=== PATIENT | female | born 1935 | race Caucasian/White ===

== ENCOUNTER 2017-05-10 06:58 | Inpatient (IN) ==
[2017-05-07 15:24] LABS: Basophils # (Auto) 0 K/mcL (0.0-0.3); Basophils % (Auto) 0.6 % (0.0-2.0); Eosinophils # (Auto) 0.1 K/mcL (0.0-0.7); Eosinophils % (Auto) 1.9 % (0.0-7.0); Lymphocytes # (Auto) 2.4 K/mcL (1.5-4.8); Lymphocytes % (Auto) 36.8 % (15.5-49.0); Mean Cell Volume 93.5 fL (80.0-100.0); Mean Corpuscular HGB Conc 34.2 g/dL (31.0-36.0); Mean Corpuscular Hemoglobin 31.9 pg (26.0-34.0); Monocytes # (Auto) 0.4 K/mcL (0.1-0.9); Monocytes % (Auto) 6.7 % (1.0-12.0); Platelet Count 271 K/mcL (140-440); RBC 3.82 M/mcL (4.00-5.20); Red Cell Distribution Width 12.9 % (11.5-14.5)
[2017-05-07 15:31] LABS: Blood Urea Nitrogen 20 mg/dl (8-23)
[2017-05-07 16:25] LABS: Appearance,Urine CLEAR; Bilirubin,Urine NEG (NEG); Color,Urine YELLOW; Glucose,Urine (UA) NEGATIVE (NEG); Leukocyte Esterase,Urine NEG /uL (NEG); Nitrate,Urine NEG (NEG); Protein,Urine NEG (NEG); Specific Gravity,Urine 1.015 (1.000-1.035); Urine Blood NEG mg/dL (<0.03); Urobilinogen,Urine NEG (NEG)
[~2017-05-10 06:58] MED LIST: IPRATROPIUM/ALBUTEROL 3 ML AMPUL.NEB NEB PRN; SCOPOLAMINE 1 PATCH PATCH TOPICAL PRN; ceFAZolin 1 GM VIAL IV SCH
[2017-05-10] MEDS ORDERED: LIDOCAINE HCL/PF 100 MG/5 ML SYRINGE IV ONE (08:45)
[2017-05-10] MEDS ORDERED: TRANEXAMIC ACID 1,000 MG/10 ML VIAL IV ONE ×2 (08:45→10:38)
[2017-05-10] MEDS ORDERED: ePHEDrine 50 MG/ML AMPUL IV ONE (08:45)
[2017-05-10] MEDS ORDERED: ONDANSETRON 4 MG/2 ML VIAL IV ONE (08:45)
[2017-05-10] MEDS ORDERED: BUPIVACAINE PF 0.5% 30 ML VIAL IJ ONE (08:45)
[2017-05-10] MEDS ORDERED: MIDAZOLAM 5 MG/5 ML VIAL IV ONE (08:45)
[2017-05-10] MEDS ORDERED: DEXAMETHASONE 10 MG/ML VIAL IV ONE (08:45)
[2017-05-10] MEDS ORDERED: PROPOFOL 200 MG/20 ML VIAL IV ONE (08:45)
[2017-05-10] MEDS ORDERED: GLYCOPYRROLATE 0.2 MG/ML VIAL IV ONE (08:45)
[2017-05-10] MEDS ORDERED: PHENYLEPHRINE 10 MG/ML VIAL IV ONE (08:45)
[2017-05-10] MEDS ORDERED: GENTAMICIN SULFATE 800 MG/20 ML VIAL IR ONE (09:32)
[2017-05-10] MEDS ORDERED: IPRATROPIUM/ALBUTEROL 3 ML AMPUL.NEB NEB PRN (10:03)
[2017-05-10] MEDS ORDERED: PROMETHAZINE 25 MG/ML VIAL IM PRN (10:03)
[2017-05-10] MEDS ORDERED: METHOCARBAMOL 1,000 MG/10 ML VIAL IV PRN (10:03)
[2017-05-10] MEDS ORDERED: NALOXONE HCL 0.4 MG/ML VIAL IV PRN (10:03)
[2017-05-10] MEDS ORDERED: MEPERIDINE 25 MG/ML SYRINGE IV PRN (10:03)
[2017-05-10] MEDS ORDERED: ONDANSETRON 4 MG/2 ML VIAL IV PRN ×2 (10:03→10:38)
[2017-05-10] MEDS ORDERED: LACTATED RINGERS 250 ML IV PRN (10:03)
[2017-05-10] MEDS ORDERED: diphenhydrAMINE 50 MG/ML VIAL IV PRN (10:03)
[2017-05-10] MEDS ORDERED: BENZOCAINE/MENTHOL 1 LOZENGE PO PRN ×2 (10:03→10:38)
[2017-05-10] MEDS ORDERED: ePHEDrine 50 MG/ML AMPUL IV PRN (10:03)
[2017-05-10] MEDS ORDERED: PROMETHAZINE 25 MG/ML VIAL IV PRN (10:03)
[2017-05-10] MEDS ORDERED: MEPERIDINE 50 MG/ML SYRINGE IM PRN (10:03)
[2017-05-10] MEDS ORDERED: fentaNYL 100 MCG/2 ML VIAL IV PRN (10:03)
[2017-05-10] MEDS ORDERED: ACETAMINOPHEN 1,000 MG/100 ML BOTTLE IV ONE (10:03)
[2017-05-10] MEDS ORDERED: FLUMAZENIL 0.1 MG/ML ML IV PRN (10:03)
[2017-05-10] MEDS ORDERED: BUPIVACAINE 0.25% 50 ML VIAL IJ ONE (10:14)
[2017-05-10] MEDS ORDERED: LACTATED RINGERS 1,000 ML IV SCH (10:15)
--- NOTE | 2017-05-10 10:34 | Brief Operative Note ---
Date of procedure: 05/10/17 Pre-op diagnosis: DJD left knee Post-op diagnosis: same Procedure: L TKR Grafts/Implants: Yes (TC3 depuy) Anesthesia: GETA Complications: none Surgeon: Ehsan Calhoun Supervisor Car Installations: Tj Lu Estimated blood loss (cc): 250 Tourniquet Time (Minutes): 40 Specimens Removed/Pathology: none sent Condition: stable Disposition: PACU
[2017-05-10] MEDS ORDERED: FLEETS ADULT ENEMA PR PRN (10:38)
[2017-05-10] MEDS ORDERED: MAGNESIUM HYDROXIDE 30 ML ORAL.SUSP PO PRN (10:38)
[2017-05-10] MEDS ORDERED: POLYETHYLENE GLYCOL 3350 17 GM PACKET PO PRN (10:38)
[2017-05-10] MEDS ORDERED: BISACODYL 10 MG SUPP.RECT PR PRN (10:38)
[2017-05-10] MEDS ORDERED: DOCUSATE SODIUM 100 MG CAPSULE PO PRN (10:44)
[2017-05-10] MEDS ORDERED: OMEPRAZOLE 20 MG CAPSULE PO PRN (10:44)
[2017-05-10] MEDS: LACTATED RINGERS 1,000 ML IV SCH ×3 (11:22→23:36)
--- NOTE | 2017-05-10 11:45 | XRay Report ---
CLINICAL INFORMATION: Post-op total knee COMPARISON: None. FINDINGS: Total knee prostheses is anatomically aligned. No osseous normality. Periarticular gas and soft tissue swelling seen. IMPRESSION: Negative Interpreted and Authenticated by: Donnell Cummings 05/10/17
--- NOTE | 2017-05-10 13:08 | Operative Note ---
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 OPERATION: Left total knee replacement (TC3 DePuy system). SURGEON: Ehsan Calhoun M.D. SCREEN DOOR MAKER: Tj Lu PA-C. ANESTHESIA: General. TOURNIQUET TIME: About 45 minutes. ESTIMATED BLOOD LOSS: 250 mL. SUMMARY OF PROCEDURE: General anesthesia was attained. The left leg was prepped and draped. A midline incision was made from the quadriceps to the tibial tubercle. The incision was taken down sharply to the quadriceps and medial retinaculum. The kneecap was mobilized laterally. The anterior menisci were resected. The kneecap was then everted. At this point, we did put the tourniquet up due to oozing. The intramedullary canal of the femur was opened with a drill and then the intramedullary tena placed. The distal femoral cutting guide was next applied over the tena. The distal cut was made at a 9 mm depth. Attention was then turned to the tibia. The knee was flexed to 140 degrees. The intramedullary canal of the tibia was opened with a drill and then it was reamed. The proximal guide for the tibial cut was placed and position was checked. The proximal cut was made. We then used a spacer to check the flexion and extension gap. I released some the iliotibial band which felt tight while checking the flexion and extension gap, and otherwise we got the gap balanced to a 10 mm insert. The femur sized to a 4. The anterior, posterior and bevel cuts were made. The tibia was prepared. It sized to a 3. The rotation was adjusted to match the patient's. The intramedullary canal was drilled and then broached. The patella was everted. It measured 25 mm. A measured resection was used taking 10 mm off the patella. It sized to a 38. The bone surfaces were copiously irrigated. They were then dried. The cement was placed onto the prosthesis and the components placed. Excess cement and spurs were removed. The cement was cured with the knee in full extension. The no-touch test was done after removing all excess cement and showed a lateral release was not needed. The quadriceps and medial retinaculum were closed with buried simple sutures of #2 FiberWire. The distal aspect was closed with a running locking 0 Maxon. The subcutaneous tissue was closed with 2-0 Vicryl. The skin was closed with rose. Throughout the procedure, Marcaine was injected to the capsule posteriorly and to the quadriceps muscle and tendon anteriorly for postoperative analgesia. A sterile compressive dressing was applied followed by an Chance bandage. The sponge and needle count was correct. The patient tolerated the procedure well and was taken to the recovery room in stable condition. TJF:olvin Job ID: [id number] Doc ID: [id number] Ehsan Calhoun MD
[2017-05-10] MEDS: 0.9 % SODIUM CHLORIDE 10 ML SYRINGE IV SCH ×2 (13:58→21:03)
[2017-05-10] MEDS: HYDROCODONE/APAP 7.5/325MG TABLET PO PRN ×3 (14:03→23:03)
[2017-05-10] MEDS: HYDROmorphone 2 MG/ML SYRINGE IV PRN ×4 (14:16→21:18)
[2017-05-10] MEDS: ceFAZolin 1 GM VIAL IV SCH (17:30)
[2017-05-10] MEDS: SENNOSIDES 1 TABLET PO SCH (20:48)
[2017-05-10] MEDS: morphine 15 MG TAB.SR.12H PO SCH (20:48)
[2017-05-10] MEDS: METHOCARBAMOL 750 MG TABLET PO PRN (20:48)
[2017-05-10] MEDS: GABAPENTIN 400 MG CAPSULE PO SCH (20:48)
[2017-05-10] MEDS: ASPIRIN 325 MG ENTERIC COATED TABLET PO SCH (20:49)
[2017-05-10] MEDS: DOCUSATE SODIUM 100 MG CAPSULE PO SCH (20:49)
[2017-05-10] MEDS ORDERED: ALBUTEROL SULFATE 1 PUFF INHALER IH PRN (21:00)
[2017-05-10] MEDS: traZODone HCL 50 MG TABLET PO PRN (21:02)
[2017-05-11] MEDS: HYDROmorphone 2 MG/ML SYRINGE IV PRN ×7 (00:11→17:16)
[2017-05-11] MEDS: ceFAZolin 1 GM VIAL IV SCH (00:12)
[2017-05-11] MEDS: HYDROCODONE/APAP 7.5/325MG TABLET PO PRN ×3 (03:12→13:58)
[2017-05-11] MEDS: METHOCARBAMOL 750 MG TABLET PO PRN ×3 (03:14→17:16)
[2017-05-11] MEDS: 0.9 % SODIUM CHLORIDE 10 ML SYRINGE IV SCH ×3 (06:16→21:23)
[2017-05-11] MEDS: LACTATED RINGERS 1,000 ML IV SCH ×2 (06:58→17:26)
[2017-05-11] MEDS ORDERED: LORazepam 1 MG TABLET PO PRN (07:46)
--- NOTE | 2017-05-11 07:49 | Orthopedic Progress Note ---
Subjective Patient information: Note initiated : 05/11/17 at 7:46 am Service Date, if different from initiated Date: [] Patient: Yoselin Adams 81 y/o F admitted on 05/10/17 for Left Total Knee Arthroplasty. Chief Complaint: [] Principal diagnosis: l TKA Objective Vital signs: Vital Signs Temp Pulse Resp BP BP Pulse Ox 05/11/17 07:11 98.4 F 16 137/67 95 05/11/17 04:00 97.5 F 52 L 16 134/54 97 05/10/17 22:55 97.2 F 61 18 112/51 93 05/10/17 20:00 98.0 F 70 22 106/59 95 05/10/17 16:27 52 L 05/10/17 16:25 52 L 16 155/66 98 05/10/17 14:37 75 05/10/17 14:30 160/68 05/10/17 13:45 48 L 16 165/68 100 05/10/17 13:12 48 L 16 150/68 100 05/10/17 12:42 48 L 16 147/72 100 05/10/17 12:28 49 L 16 143/61 100 05/10/17 12:12 52 L 16 145/80 100 05/10/17 11:57 98.1 F 56 L 16 88 L 05/10/17 11:41 98.2 F 75 12 118/57 99 05/10/17 11:28 97.0 F 62 12 109/55 95 05/10/17 11:10 97.0 F 54 L 9 L 131/55 100 05/10/17 10:55 97.0 F 53 L 10 L 117/49 100 Intake and Output 05/10/17 05/11/17 05/11/17 21:59 05:59 13:59 Intake Total 720 / 720 Output Total 600 / 600 200 / 200 Balance 720 / 720 -600 / -600 -200 / -200 Intake: Oral 720 / 720 Output: Void Amount 600 / 600 200 / 200 Other: Meal Nourishment/Supplement Percent of Meal Consumed 100% Weight 149 lb Intake & Output: Intake & Output 05/10/17 05/11/17 05/11/17 21:59 05:59 13:59 Intake Total 720 / 720 Output Total 600 / 600 200 / 200 Balance 720 / 720 -600 / -600 -200 / -200 Weight 149 lb Intake: Oral 720 / 720 Output: Void Amount 600 / 600 200 / 200 Other: Meal Nourishment/Supplement Percent of Meal Consumed 100% Incision: Yes clean and dry Dressing: Yes clean, Yes dry, Yes intact Weight bearing status: as tolerated Neurological exam IM: Yes alert, Yes motor sensory deficit Extremities exam IM: Yes neurovascular intact - Diagnostic Results Knee x-ray: image reviewed (well aligned TKR) - Labs CBC & BMP: 05/11/17 05:56 05/07/17 13:59 Labs: Orthopedic Labs 05/07/17 13:59 PT 13.4 INR 1.0 05/11/17 05/07/17 05:56 13:59 Hgb 8.6 L 12.2 Hct 25.3 L 35.8 L Assessment and Plan (1) Total knee replacement status mild anemia. pain controll problems recheck hct tomorrow switch to Morphine short acting as she has been on Morphine SR preop Status: Acute Priority: Medium Qualifiers: Laterality: left Qualified Code(s): Z96.652 - Presence of left artificial knee joint
[2017-05-11] MEDS: FERROUS GLUCONATE 324 MG TABLET PO SCH (08:20)
[2017-05-11] MEDS: LISINOPRIL 10 MG TABLET PO SCH (08:20)
[2017-05-11] MEDS: DOCUSATE SODIUM 100 MG CAPSULE PO SCH ×2 (08:20→21:23)
[2017-05-11] MEDS: VITAMIN D3 1,000 UNIT TABLET PO SCH (08:20)
[2017-05-11] MEDS: ESCITALOPRAM 10 MG TABLET PO SCH (08:20)
[2017-05-11] MEDS: GABAPENTIN 400 MG CAPSULE PO SCH ×2 (08:20→21:23)
[2017-05-11] MEDS: predniSONE 5 MG TABLET PO SCH (08:20)
[2017-05-11] MEDS: morphine 15 MG TAB.SR.12H PO SCH ×2 (08:20→21:23)
[2017-05-11] MEDS: ASPIRIN 325 MG ENTERIC COATED TABLET PO SCH ×2 (08:21→21:23)
[2017-05-11] MEDS: morphine 15 MG TABLET PO PRN ×2 (09:56→14:29)
[2017-05-11] MEDS: SENNOSIDES 1 TABLET PO SCH (21:23)
[2017-05-12] MEDS: METHOCARBAMOL 750 MG TABLET PO PRN ×3 (00:01→16:19)
[2017-05-12] MEDS: morphine 15 MG TABLET PO PRN ×2 (02:50→13:08)
[2017-05-12] MEDS: LACTATED RINGERS 1,000 ML IV SCH ×3 (05:00→23:02)
[2017-05-12] MEDS: 0.9 % SODIUM CHLORIDE 10 ML SYRINGE IV SCH ×3 (06:16→21:41)
[2017-05-12] MEDS: FERROUS GLUCONATE 324 MG TABLET PO SCH (08:27)
[2017-05-12] MEDS: GABAPENTIN 400 MG CAPSULE PO SCH ×2 (08:27→21:30)
[2017-05-12] MEDS: predniSONE 5 MG TABLET PO SCH (08:27)
[2017-05-12] MEDS: DOCUSATE SODIUM 100 MG CAPSULE PO SCH ×2 (08:27→21:30)
[2017-05-12] MEDS: VITAMIN D3 1,000 UNIT TABLET PO SCH (08:27)
[2017-05-12] MEDS: morphine 15 MG TAB.SR.12H PO SCH ×2 (08:28→21:30)
[2017-05-12] MEDS: LISINOPRIL 10 MG TABLET PO SCH (08:28)
[2017-05-12] MEDS: ESCITALOPRAM 10 MG TABLET PO SCH (08:28)
[2017-05-12] MEDS: ASPIRIN 325 MG ENTERIC COATED TABLET PO SCH ×2 (08:28→21:30)
--- NOTE | 2017-05-12 09:37 | Orthopedic Progress Note ---
Subjective Patient information: Note initiated : 05/12/17 at 9:35 am Service Date, if different from initiated Date: [] Patient: Yoselin Adams 81 y/o F admitted on 05/10/17 for Left Total Knee Arthroplasty. Chief Complaint: [] Principal diagnosis: l TKA Interval history: POD 2, having less pain Objective Vital signs: Vital Signs Temp Pulse Resp BP BP Pulse Ox 05/12/17 06:47 98.8 F 20 155/69 95 05/12/17 04:00 69 16 160/67 97 05/12/17 00:05 96 05/12/17 00:00 98.9 F 66 18 157/76 89 L 05/11/17 20:00 98.5 F 74 18 171/72 91 05/11/17 16:00 98.6 F 18 150/59 95 05/11/17 11:54 98.2 F 20 128/62 94 Intake and Output 05/11/17 05/12/17 05/12/17 21:59 05:59 13:59 Intake Total 200 / 200 Output Total 750 / 750 375 / 375 200 / 200 Balance -750 / -750 -175 / -175 -200 / -200 Intake: Oral 200 / 200 Output: Void Amount 750 / 750 375 / 375 200 / 200 Other: # Voids 1 Weight 149 lb Intake & Output: Intake & Output 05/11/17 05/12/17 05/12/17 21:59 05:59 13:59 Intake Total 200 / 200 Output Total 750 / 750 375 / 375 200 / 200 Balance -750 / -750 -175 / -175 -200 / -200 Weight 149 lb Intake: Oral 200 / 200 Output: Void Amount 750 / 750 375 / 375 200 / 200 Other: # Voids 1 Dressing: Yes clean, Yes dry Weight bearing status: as tolerated Extremities exam IM: Yes neurovascular intact - Labs CBC & BMP: 05/12/17 04:48 05/07/17 13:59 Labs: Orthopedic Labs 05/07/17 13:59 PT 13.4 INR 1.0 05/12/17 05/11/17 05/07/17 04:48 05:56 13:59 Hgb 8.8 L 8.6 L 12.2 Hct 25.7 L 25.3 L 35.8 L Assessment and Plan (1) Total knee replacement status Less pain. have d/meme norco and filaudid, weaning down to oral Morphine continue physical thpy Status: Acute Priority: Medium Qualifiers: Laterality: left Qualified Code(s): Z96.652 - Presence of left artificial knee joint
[2017-05-12] MEDS: ACETAMINOPHEN 1,000 MG/100 ML BOTTLE IV PRN ×2 (11:17→19:15)
[2017-05-12] MEDS: SENNOSIDES 1 TABLET PO SCH (21:30)
[2017-05-12] MEDS: traZODone HCL 50 MG TABLET PO PRN (22:31)
[2017-05-13] MEDS: morphine 15 MG TABLET PO PRN ×2 (05:41→13:03)
[2017-05-13] MEDS: 0.9 % SODIUM CHLORIDE 10 ML SYRINGE IV SCH ×2 (05:41→09:41)
[2017-05-13] MEDS: LACTATED RINGERS 1,000 ML IV SCH (08:30)
[2017-05-13] MEDS: predniSONE 5 MG TABLET PO SCH (08:30)
[2017-05-13] MEDS: DOCUSATE SODIUM 100 MG CAPSULE PO SCH (08:30)
[2017-05-13] MEDS: FERROUS GLUCONATE 324 MG TABLET PO SCH (08:30)
[2017-05-13] MEDS: ESCITALOPRAM 10 MG TABLET PO SCH (08:30)
[2017-05-13] MEDS: GABAPENTIN 400 MG CAPSULE PO SCH (08:30)
[2017-05-13] MEDS: morphine 15 MG TAB.SR.12H PO SCH (08:30)
[2017-05-13] MEDS: ASPIRIN 325 MG ENTERIC COATED TABLET PO SCH (08:30)
[2017-05-13] MEDS: VITAMIN D3 1,000 UNIT TABLET PO SCH (08:30)
[2017-05-13] MEDS: LISINOPRIL 10 MG TABLET PO SCH (08:30)
[2017-05-13] MEDS: ACETAMINOPHEN 1,000 MG/100 ML BOTTLE IV PRN (09:40)
--- NOTE | 2017-05-13 10:00 | Orthopedic Progress Note ---
Subjective Patient information: Note initiated : 05/13/17 at 9:57 am Service Date, if different from initiated Date: [] Patient: Yoselin Adams 81 y/o F admitted on 05/10/17 for Left Total Knee Arthroplasty. Chief Complaint: [] Principal diagnosis: l TKA Interval history: walked 75 feet yesterday. better pain control Objective Vital signs: Vital Signs Temp Pulse Resp BP Pulse Ox 05/13/17 06:44 98.2 F 16 134/73 94 05/13/17 04:00 98.4 F 79 16 145/79 97 05/13/17 00:00 97.7 F 79 16 148/77 94 05/12/17 20:00 98.0 F 66 16 141/62 93 05/12/17 16:00 97.5 F 66 16 143/71 95 05/12/17 12:01 97.5 F 71 18 149/73 96 Intake and Output 05/12/17 05/13/17 05/13/17 21:59 05:59 13:59 Intake Total 300 / 300 200 / 200 600 / 600 Output Total 250 / 250 450 / 450 425 / 425 Balance 50 / 50 -250 / -250 175 / 175 Intake: IV 100 / 100 Oral 300 / 300 100 / 100 600 / 600 Output: Void Amount 250 / 250 450 / 450 425 / 425 Other: Meal Lunch Breakfast Percent of Meal Consumed see note 50% # Voids 1 1 # Bowel Movements 1 Weight 147 lb Intake & Output: Intake & Output 05/12/17 05/13/17 05/13/17 21:59 05:59 13:59 Intake Total 300 / 300 200 / 200 600 / 600 Output Total 250 / 250 450 / 450 425 / 425 Balance 50 / 50 -250 / -250 175 / 175 Weight 147 lb Intake: IV 100 / 100 Oral 300 / 300 100 / 100 600 / 600 Output: Void Amount 250 / 250 450 / 450 425 / 425 Other: Meal Lunch Breakfast Percent of Meal Consumed see note 50% # Voids 1 1 # Bowel Movements 1 Dressing: Yes clean, Yes dry, Yes intact Weight bearing status: as tolerated Extremities exam IM: Yes neurovascular intact - Labs CBC & BMP: 05/13/17 04:34 05/07/17 13:59 Labs: Orthopedic Labs 05/07/17 13:59 PT 13.4 INR 1.0 05/13/17 05/12/1717 04:34 04:48 05:56 Hgb 8.3 L 8.8 L 8.6 L Hct 23.9 L 25.7 L 25.3 L 05/07/17 13:59 Hgb 12.2 Hct 35.8 L Assessment and Plan (1) Total knee replacement status Doing better on Morphine and anxiolytics. Continue PT;social service consult. Status: Acute Priority: Medium Qualifiers: Laterality: left Qualified Code(s): Z96.652 - Presence of left artificial knee joint
--- NOTE | 2017-05-13 10:49 | Discharge Summary ---
DATE OF ADMISSION: 05/10/2017 DATE OF DISCHARGE: Yoselin was admitted on 05/10 for a left total knee replacement, is transferred to swing bed status on the . Discharge diagnoses are left total knee replacement and anemia. The patient was admitted and underwent an uncomplicated total knee replacement on the . She was slow with rehabilitation. She was requiring morphine for pain control but is progressing in her amount of walking per day. She is transferred to swing bed on morphine for pain control. She had a stable hematocrit between 24 and 25 after surgery with no symptoms. She will continue her rehabilitation on a swing bed at [facility]. TJF:[facility] Job ID: [id number] Doc ID: [id number] Ehsan Calhoun MD
== END 2017-05-13 10:56 | disposition other institution (70) | DRG 470 ==
LOC: MEDSUR 06:58
PROVIDERS: ADMIT Orthopaedic Surgery Foot and Ankle Surgery; ATTEND Orthopaedic Surgery Foot and Ankle Surgery

== ENCOUNTER 2017-05-13 10:15 | Inpatient (IN) ==
[2017-05-13] MEDS ORDERED: MAGNESIUM HYDROXIDE 30 ML ORAL.SUSP PO PRN (11:04)
[2017-05-13] MEDS ORDERED: BISACODYL 10 MG SUPP.RECT PR PRN (11:04)
[2017-05-13] MEDS ORDERED: BENZOCAINE/MENTHOL 1 LOZENGE PO PRN (11:04)
[2017-05-13] MEDS ORDERED: POLYETHYLENE GLYCOL 3350 17 GM PACKET PO PRN (11:04)
[2017-05-13] MEDS ORDERED: ONDANSETRON 4 MG/2 ML VIAL IV PRN (11:04)
[2017-05-13] MEDS ORDERED: FLEETS ADULT ENEMA PR PRN (11:04)
[2017-05-13] MEDS ORDERED: ACETAMINOPHEN 650 MG/65 ML BOTTLE IV PRN (11:25)
[2017-05-13] MEDS: METHOCARBAMOL 750 MG TABLET PO PRN (15:45)
[2017-05-13] MEDS: 0.9 % SODIUM CHLORIDE 10 ML SYRINGE IV SCH ×2 (15:47→20:29)
[2017-05-13] MEDS: DOCUSATE SODIUM 100 MG CAPSULE PO SCH (20:27)
[2017-05-13] MEDS: morphine 15 MG TAB.SR.12H PO SCH (20:27)
[2017-05-13] MEDS: SENNOSIDES 1 TABLET PO SCH (20:27)
[2017-05-13] MEDS: ASPIRIN 325 MG ENTERIC COATED TABLET PO SCH (20:27)
[2017-05-13] MEDS ORDERED: OMEPRAZOLE 20 MG CAPSULE PO PRN (20:39)
[2017-05-13] MEDS: ALBUTEROL SULFATE 1 PUFF INHALER INH SCH (21:18)
[2017-05-13] MEDS: GABAPENTIN 400 MG CAPSULE PO SCH (21:18)
[2017-05-13] MEDS: morphine 15 MG TABLET PO PRN (22:37)
[2017-05-13] MEDS: traZODone HCL 150 MG TABLET PO PRN (22:37)
[2017-05-14] MEDS: METHOCARBAMOL 750 MG TABLET PO PRN ×2 (00:04→22:19)
[2017-05-14] MEDS: LORazepam 1 MG TABLET PO PRN ×2 (00:06→22:19)
[2017-05-14] MEDS: 0.9 % SODIUM CHLORIDE 10 ML SYRINGE IV SCH ×2 (06:32→13:13)
[2017-05-14] MEDS: FERROUS GLUCONATE 324 MG TABLET PO SCH (08:52)
[2017-05-14] MEDS: LISINOPRIL 10 MG TABLET PO SCH (08:52)
[2017-05-14] MEDS: predniSONE 1 MG TABLET PO SCH (08:52)
[2017-05-14] MEDS: GABAPENTIN 400 MG CAPSULE PO SCH ×2 (08:52→21:11)
[2017-05-14] MEDS: DOCUSATE SODIUM 100 MG CAPSULE PO SCH ×2 (08:52→21:12)
[2017-05-14] MEDS: ASPIRIN 325 MG ENTERIC COATED TABLET PO SCH ×2 (08:52→21:12)
[2017-05-14] MEDS: VITAMIN D3 1,000 UNIT TABLET PO SCH (08:52)
[2017-05-14] MEDS: ESCITALOPRAM 10 MG TABLET PO SCH (08:52)
[2017-05-14] MEDS: ASCORBIC ACID 500 MG TABLET PO SCH (08:52)
[2017-05-14] MEDS: morphine 15 MG TAB.SR.12H PO SCH ×2 (08:52→21:12)
[2017-05-14] MEDS: ALBUTEROL SULFATE 1 PUFF INHALER INH SCH ×2 (08:53→21:13)
[2017-05-14] MEDS ORDERED: NON FORMULARY MEDICATION 1 DOSE MISCELL PO SCH (09:00)
[2017-05-14] MEDS: morphine 15 MG TABLET PO PRN ×3 (13:12→23:57)
[2017-05-14] MEDS: SENNOSIDES 1 TABLET PO SCH (21:12)
[2017-05-14] MEDS: traZODone HCL 150 MG TABLET PO PRN (22:19)
--- NOTE | 2017-05-15 08:25 | Orthopedic Progress Note ---
Subjective Patient information: Note initiated : 05/15/17 at 8:22 am Service Date, if different from initiated Date: [] Patient: Yoselin Adams 81 y/o F admitted on 05/13/17 for Left Total Knee. Chief Complaint: [] Principal diagnosis: Pod5 Interval history: improved walkimg, less pain Objective Vital signs: Vital Signs Temp Pulse Resp BP Pulse Ox 05/15/17 07:37 98.3 F 16 114/69 90 05/14/17 20:00 98.0 F 76 16 119/70 96 Intake and Output 05/14/17 05/15/17 05/15/17 21:59 05:59 13:59 Intake Total 800 / 800 100 / 100 Output Total 1000 / 1000 550 / 550 Balance -200 / -200 100 / 100 -550 / -550 Intake: Oral 800 / 800 100 / 100 Output: Void Amount 1000 / 1000 550 / 550 Other: # Bowel Movements 1 Weight 150 lb Intake & Output: Intake & Output 05/14/17 05/15/17 05/15/17 21:59 05:59 13:59 Intake Total 800 / 800 100 / 100 Output Total 1000 / 1000 550 / 550 Balance -200 / -200 100 / 100 -550 / -550 Weight 150 lb Intake: Oral 800 / 800 100 / 100 Output: Void Amount 1000 / 1000 550 / 550 Other: # Bowel Movements 1 Dressing: Yes clean, Yes dry, Yes intact Assessment and Plan (1) Total knee replacement status Improved fumctiom amd decreased pain. Plam is d/c home from swing bed om 05/18 Status: Acute Priority: Medium Comment: none Qualifiers:
[2017-05-15] MEDS: DOCUSATE SODIUM 100 MG CAPSULE PO SCH ×2 (08:27→21:38)
[2017-05-15] MEDS: ESCITALOPRAM 10 MG TABLET PO SCH (08:27)
[2017-05-15] MEDS: GABAPENTIN 400 MG CAPSULE PO SCH ×2 (08:27→21:38)
[2017-05-15] MEDS: VITAMIN D3 1,000 UNIT TABLET PO SCH (08:27)
[2017-05-15] MEDS: ASPIRIN 325 MG ENTERIC COATED TABLET PO SCH ×2 (08:27→21:37)
[2017-05-15] MEDS: FERROUS GLUCONATE 324 MG TABLET PO SCH (08:28)
[2017-05-15] MEDS: ASCORBIC ACID 500 MG TABLET PO SCH (08:28)
[2017-05-15] MEDS: morphine 15 MG TAB.SR.12H PO SCH ×2 (08:28→21:37)
[2017-05-15] MEDS: predniSONE 1 MG TABLET PO SCH (08:28)
[2017-05-15] MEDS: LISINOPRIL 10 MG TABLET PO SCH (08:28)
[2017-05-15] MEDS: ALBUTEROL SULFATE 1 PUFF INHALER INH SCH (08:29)
[2017-05-15] MEDS ORDERED: HYDROcodone/APAP 10/325MG TABLET PO PRN (08:31)
[2017-05-15] MEDS ORDERED: LINACLOTIDE 145 MCG PO PRN (08:33)
[2017-05-15] MEDS ORDERED: traZODone HCL 50 MG TABLET PO PRN (08:33)
[2017-05-15] MEDS ORDERED: LORazepam 1 MG TABLET PO PRN (08:33)
[2017-05-15] MEDS ORDERED: OMEPRAZOLE 20 MG CAPSULE PO PRN (08:33)
[2017-05-15] MEDS ORDERED: MAGNESIUM HYDROXIDE 30 ML ORAL.SUSP PO PRN (08:33)
[2017-05-15] MEDS ORDERED: HYDROcodone/APAP 10/325MG TABLET PO SCH (09:00)
[2017-05-15] MEDS ORDERED: VITAMIN D3 1,000 UNIT TABLET PO SCH (09:00)
[2017-05-15] MEDS ORDERED: ESCITALOPRAM 10 MG TABLET PO SCH (09:00)
[2017-05-15] MEDS ORDERED: ALBUTEROL SULFATE 1 PUFF INHALER IH SCH (09:00)
[2017-05-15] MEDS ORDERED: morphine 15 MG TAB.SR.12H PO SCH (09:00)
[2017-05-15] MEDS ORDERED: ASPIRIN 325 MG ENTERIC COATED TABLET PO SCH (09:00)
[2017-05-15] MEDS ORDERED: [UNRECOGNIZED DRUG - OTHER] PO SCH (09:00)
[2017-05-15] MEDS ORDERED: ERGOCALCIFEROL PO SCH (09:00)
[2017-05-15] MEDS ORDERED: GABAPENTIN 400 MG CAPSULE PO SCH (09:00)
[2017-05-15] MEDS ORDERED: LISINOPRIL 10 MG TABLET PO SCH (09:00)
[2017-05-15] MEDS ORDERED: ASCORBIC ACID 500 MG TABLET PO SCH (09:00)
[2017-05-15] MEDS: morphine 15 MG TABLET PO PRN ×3 (09:24→18:58)
[2017-05-15] MEDS: METHOCARBAMOL 750 MG TABLET PO PRN ×2 (11:06→21:38)
[2017-05-15] MEDS: ESTROGENS, CONJUGATED 1 APPFUL TUBE 30GM VAG SCH (11:25)
[2017-05-15] MEDS ORDERED: ALBUTEROL SULFATE 1 PUFF INHALER INH PRN (11:30)
[2017-05-15] MEDS: LORazepam 1 MG TABLET PO PRN (21:38)
[2017-05-15] MEDS: SENNOSIDES 1 TABLET PO SCH (21:40)
[2017-05-16] MEDS: morphine 15 MG TAB.SR.12H PO SCH ×2 (08:05→21:32)
[2017-05-16] MEDS: DOCUSATE SODIUM 100 MG CAPSULE PO SCH ×2 (08:05→21:33)
[2017-05-16] MEDS: GABAPENTIN 400 MG CAPSULE PO SCH ×2 (08:05→21:33)
[2017-05-16] MEDS: ESCITALOPRAM 10 MG TABLET PO SCH (08:05)
[2017-05-16] MEDS: FERROUS GLUCONATE 324 MG TABLET PO SCH (08:05)
[2017-05-16] MEDS: predniSONE 5 MG TABLET PO SCH (08:06)
[2017-05-16] MEDS: VITAMIN D3 1,000 UNIT TABLET PO SCH (08:06)
[2017-05-16] MEDS: ASCORBIC ACID 500 MG TABLET PO SCH (08:06)
[2017-05-16] MEDS: ASPIRIN 325 MG ENTERIC COATED TABLET PO SCH ×2 (08:06→21:33)
[2017-05-16] MEDS: LISINOPRIL 10 MG TABLET PO SCH (08:07)
[2017-05-16] MEDS: morphine 15 MG TABLET PO PRN ×2 (10:18→17:33)
[2017-05-16] MEDS: METHOCARBAMOL 750 MG TABLET PO PRN ×2 (10:18→21:42)
[2017-05-16] MEDS: SENNOSIDES 1 TABLET PO SCH (21:33)
[2017-05-16] MEDS: LORazepam 1 MG TABLET PO PRN (21:42)
[2017-05-17] MEDS: morphine 15 MG TABLET PO PRN (03:47)
--- NOTE | 2017-05-17 06:35 | Orthopedic Progress Note ---
Subjective Patient information: Note initiated : 05/17/17 at 6:35 am Service Date, if different from initiated Date: [] Patient: Yoselin Adams 81 y/o F admitted on 05/13/17 for Left Total Knee. Chief Complaint: [less pain and walked 250 feet] Principal diagnosis: Pod5 Objective Vital signs: Vital Signs Temp Pulse Resp BP Pulse Ox 05/16/17 20:00 98.7 F 70 22 148/71 94 05/16/17 07:37 98.8 F 18 136/69 90 Intake and Output 05/16/17 05/17/17 05/17/17 21:59 05:59 13:59 Intake Total 450 / 450 Output Total 1150 / 1150 500 / 500 Balance -1150 / -1150 -50 / -50 Intake: Oral 450 / 450 Output: Void Amount 1150 / 1150 500 / 500 Other: # Bowel Movements 1 Weight 150 lb Intake & Output: Intake & Output 05/16/17 05/17/17 05/17/17 21:59 05:59 13:59 Intake Total 450 / 450 Output Total 1150 / 1150 500 / 500 Balance -1150 / -1150 -50 / -50 Weight 150 lb Intake: Oral 450 / 450 Output: Void Amount 1150 / 1150 500 / 500 Other: # Bowel Movements 1 Incision: Yes healing Incision clean and dry: Yes Dressing: Yes clean Weight bearing status: full Neurological exam IM: Yes oriented X3, Yes neurovascular intact Extremities exam IM: Yes Foot pink and warm (dc home today), Yes neurovascular intact
[2017-05-17] MEDS: METHOCARBAMOL 750 MG TABLET PO PRN (07:06)
[2017-05-17] MEDS: ASCORBIC ACID 500 MG TABLET PO SCH (08:10)
[2017-05-17] MEDS: predniSONE 5 MG TABLET PO SCH (08:10)
[2017-05-17] MEDS: LISINOPRIL 10 MG TABLET PO SCH (08:10)
[2017-05-17] MEDS: FERROUS GLUCONATE 324 MG TABLET PO SCH (08:10)
[2017-05-17] MEDS: ASPIRIN 325 MG ENTERIC COATED TABLET PO SCH (08:10)
[2017-05-17] MEDS: GABAPENTIN 400 MG CAPSULE PO SCH (08:10)
[2017-05-17] MEDS: morphine 15 MG TAB.SR.12H PO SCH (08:10)
[2017-05-17] MEDS: ESCITALOPRAM 10 MG TABLET PO SCH (08:11)
[2017-05-17] MEDS: DOCUSATE SODIUM 100 MG CAPSULE PO SCH (08:11)
[2017-05-17] MEDS: VITAMIN D3 1,000 UNIT TABLET PO SCH (08:11)
[2017-05-17] MEDS: ESTROGENS, CONJUGATED 1 APPFUL TUBE 30GM VAG SCH (08:12)
== END 2017-05-17 09:15 | disposition home or self-care (01) | DRG 812 ==
LOC: MEDSUR 10:56
PROVIDERS: ADMIT Orthopaedic Surgery Foot and Ankle Surgery; ATTEND Orthopaedic Surgery Foot and Ankle Surgery